=== PATIENT | female | born 1985 | race African-American/Black ===

== ENCOUNTER 2025-02-05 15:04 | Emergency (ER) | payer MEDICAID ==
[~2025-02-05] VITALS: Ht 170.2 cm; Wt 120.0 kg
[2025-02-05 15:08] VITALS: BP 140/96; PULSE 88; RESP 18; TEMP 36.8; O2SAT 99
[2025-02-05 17:43] LABS: BASOPHILS % 0.4 % (0.0-2.0); EOSINOPHILS % 1.6 % (0.0-5.0); HEMATOCRIT. 27.7 % (36.0-48.0); HEMOGLOBIN. 7.8 g/dL (12.0-16.0); LYMPHOCYTES % 28.9 % (20.0-50.0); MEAN CORPUSCULAR HGB CONC 28.3 g/dL (31.0-37.0); MEAN CORPUSCULAR VOLUME 60.1 fL (81.0-99.0); MEAN PLATELET VOLUME 8.6 fl (7.4-10.4); MONOCYTES % 4.7 % (2.0-8.0); NEUTROPHILS % 64.4 % (40.0-76.0); PLATELET 299 x1000/uL (130-400); RED BLOOD CELL COUNT 4.62 mill/uL (4.2-5.4); RED CELL DISTRIBUTION WIDTH 19.4 % (11.6-14.6); WHITE BLOOD COUNT 8.1 x1000/uL (4.5-11.0)
[2025-02-05 17:49] LABS: ADD RBC MORPHOLOGY YES; DIFFERENTIAL COMMENT 1
[2025-02-05 17:54] LABS: CHLORIDE 103 mEq/L (98-107); POTASSIUM 3.2 mEq/L (3.5-5.1); SODIUM 139 mEq/L (136-145)
[2025-02-05 17:55] LABS: CARBON DIOXIDE 27 mEq/L (21-32)
[2025-02-05 17:56] LABS: CALCIUM 8.3 mg/dL (8.7-10.4)
[2025-02-05 18:00] LABS: CREATININE 0.5 mg/dL (0.6-1.0); GLUCOSE 107 mg/dL (70-105); TROPONIN I HIGH SENSITIVITY 4 ng/L (3.0-34); UREA NITROGEN BLOOD 8 mg/dL (9-23)
[2025-02-05 18:01] LABS: D-DIMER 0.98 mg/L FEU (<0.50); PROTHROMBIN TIME 10.6 sec (9.6-11.0)
[2025-02-05 23:46] LABS: HYPOCHROMASIA 3+; PLATELET ESTIMATE NORMAL
[2025-02-05 23:47] LABS: ANISOCYTOSIS 1+; MICROCYTOSIS 3+
== END 2025-02-05 21:08 | disposition left against medical advice (07) ==
LOC: ER 15:04
DX: R07.89 Other chest pain (principal)
CPT/HCPCS: 36415; 71045; 80048; 84484; 85025; 85379; 93005; 99285